=== PATIENT | female | born 1985 | race Caucasian/White ===

== ENCOUNTER 2023-09-12 01:49 | Emergency (ER) | payer MEDICAID, OTHER ==
[~2023-09-12] VITALS: Ht 160 cm; Wt 72.4 kg
[2023-09-12 02:29] VITALS: BP 147/90; PULSE 117; RESP 18; TEMP 98.9; O2SAT 96
[2023-09-12] MEDS: KETOROLAC TROMETH 60MG/2ML VIAL IM ONE (02:33)
[2023-09-12] MEDS ORDERED: IBUP-1455 PO (02:35)
[2023-09-12] MEDS ORDERED: ACET500T58 PO (02:35)
== END 2023-09-12 02:47 | disposition home or self-care (01) ==
LOC: ER 01:49
DX: S70.12XA Contusion of left thigh, initial encounter (principal); Z88.0 Allergy status to penicillin; Z88.1 Allergy status to other antibiotic agents; Y04.2XXA Assault by strike against or bumped into by another person, initial encounter; Y93.89 Activity, other specified; Y92.89 Other specified places as the place of occurrence of the external cause; Y99.8 Other external cause status
CPT/HCPCS: 96372; 99283; J1885